=== PATIENT | female | born 1975 | race Caucasian/White ===

== ENCOUNTER 2019-01-08 08:34 | Day surgery (SDC) | payer BC, SELFPAY ==
[2019-01-08 08:50] LABS: Internal QC Validated? YES +Cl - CLEAR BKGD; Pregnancy, Urine Negative Negative
[2019-01-08 08:55] VITALS: BP 104/68; PULSE 69; RESP 16; TEMP 37.3; O2SAT 100; BMI 25.2
[2019-01-08] MEDS: Cefazolin 2 GM in 0.9% Normal Saline 100 ML IV (09:37)
[2019-01-08 10:18] VITALS: BP 104/64; BP 105/56; PULSE 64; RESP 16; TEMP 36.3; O2SAT 100
--- NOTE | 2019-01-08 10:21 | PCM.OPRPT ---
Problem List (1) Urethral hypermobility Status: Acute (2) Stress incontinence of urine Status: Acute Report of Operation Date of Procedure: 01/08/19 Pre-Operative Diagnosis: stress incontinence, urethral hypermobility Post-Operative Diagnosis: same Surgery/Procedure Performed:: Altis midurethral sling, cystoscopy Description of Surgical Findings:: good position of sling. no complications Type of Anesthesia:: General Specimen's removed: none Estimated Blood Loss (mL): 25cc Description of Procedure: The patient is a 43-year-old female who presented to the office with complaints of urinary incontinence. She underwent urodynamics in addition to office cystoscopy for full evaluation secondary to feeling pelvic floor physical therapy and having evidence of mixed incontinence. After discussing the risk benefits and alternatives, she agreed to proceed with surgical intervention with a mid urethral sling insertion and cystoscopy. Informed consent was obtained. Patient was taken to the operating room and placed on the operating room table. Anesthesia monitored the head, neck, airway, IV access of vital signs throughout the case. Once anesthesia was appropriately administered, the patient was placed into dorsal lithotomy in Trendelenburg position and was prepped and draped in usual sterile fashion. The mid urethra was identified and submucosally injected with lidocaine with epinephrine for hydrostatic dissection and hemostatic control. A midline vertical incision approximately 1.5 cm in length was then made sharp and blunt dissection ensued on either side of the urethra. At this time the trochars of the ALT to spend urethral sling were used to place the tines into the obturator complexes bilaterally. The same was flat in nature and sat against the urethra without tension. At this time the incision was closed using running interlocking 2-0 Vicryl. A cystourethroscopy with a 70 degree lens was then performed and there were no entrances into the urinary bladder or the urethra with any foreign object. There was no blood in the bladder. At this time the bladder was left mildly full and the cystoscope was removed. The patient was awakened and taken to the recovery room in good condition. There were no complications during this procedure. Grafts/Implants Used: Altis midurethral sling - Complications none - Admit VTE Documentation VTE Present on Admission: Yes VTE Mechan Device Prophylaxis: SCD's VTE Pharm Prophylaxis ordered?: No Reason prophylaxis not ordered:: Treatment Not Indicated
--- NOTE | 2019-01-08 10:25 | DCINST_ITS ---
Discharge Diet: No Restrictions Discharge Activity: May not drive while taking narcotic pain medications., May Shower May resume sexual activity in: 4 weeks Lifting Restrictions: 5 pounds Additional Activity Instructions:: no exercising, no lifting over 5 pounds, no intercourse, nothing per vagina, no tub bathing, no swimming. Ok to shower. Ok to go up and down stairs. Call your doctor if your incision/area has: Continuous Slow Oozing, Sudden Increased Bleeding, Increased Pain/ Swelling, Foul Smelling Discharge Call your doctor if you observe: Fever of 101 or Higher, Inability to urinate, Inability to have a bowel movement, Using more than one pad per hour, Shortness of breath, Chest pain, Calf discomfort Allergies/Adverse Reactions: Allergies codeine Allergy (Verified 01/08/19 08:52) Unknown Medications to take at Discharge Albuterol Inhaler [Ventolin Hfa (SP)] 1 - 2 puff INHALATION Q4H PRN PRN 01/07/19 Cetirizine HCl [Zyrtec] 10 mg PO DAILY 01/07/19 Colesevelam Hydrochloride [Welchol] 1,250 mg PO BID 01/07/19 L.acidoph,Paracasei, B.lactis [Probiotic] 1 each PO DAILY 01/07/19 Magnesium 250 mg PO DAILY 01/07/19 Multivitamin with Minerals [Multiple Vitamin] 1 each PO DAILY 01/07/19 Primary Care Physician: Natty Stapleton MD [Primary Care Provider] - Test Results: Test results from this visit will be discussed in further detail at your follow- up appointment, if applicable. Please Follow Up With: Rachel Rodriguez MD When: in 2 weeks, call office for appt. Proposed Discharge Date: 01/08/19
[2019-01-08 10:30] VITALS: BP 104/64; BP 89/53; PULSE 56; RESP 16; O2SAT 94
[2019-01-08 10:46] VITALS: BP 104/64; BP 94/55; PULSE 52; RESP 14; O2SAT 99
[2019-01-08 10:51] VITALS: BP 104/64; BP 92/74; PULSE 62; RESP 14; TEMP 36.2; O2SAT 100
[2019-01-08 12:25] VITALS: BP 104/64; BP 122/73; PULSE 50; RESP 16; TEMP 37; O2SAT 100
== END 2019-01-08 12:38 | disposition home or self-care (01) ==
LOC: SDC 08:35 → AC 08:37
PROVIDERS: Anesthesiology; Family Provider Family Medicine; PCP Family Medicine; Referring Provider Urology; Visit Provider Urology
PROC: 0TJB8ZZ Inspection of Bladder, Via Natural or Artificial Opening Endoscopic (ICD-10-PCS; CPT 57288; principal; 2019-01-08 08:55)
DX: N36.41 Hypermobility of urethra (principal); N39.3 Stress incontinence (female) (male); N39.41 Urge incontinence; J45.909 Unspecified asthma, uncomplicated; Z86.718 Personal history of other venous thrombosis and embolism
CPT/HCPCS: 57288; 81025; J7120